=== PATIENT | female | born 2005 | race Caucasian/White ===

== ENCOUNTER 2023-04-30 13:50 | Emergency (ER) | payer SELFPAY ==
[2023-04-30 14:08] VITALS: BP 139/87; PULSE 86; RESP 18; TEMP 98.5; BMI 24.5
[2023-04-30 15:37] LABS: BASO % 0.6 % (0-2.0); EOS % 5.7 % (0-4.5); HEMATOCRIT 42.7 % (32.4-45.2); HEMOGLOBIN 14.2 GM/dL (10.7-15.3); LYMPH % 23.6 % (8-40); MCH 27.1 pg (25.7-33.7); MCHC 33.3 g/dl (32.0-36.0); MEAN CELL VOLUME 81.3 fl (80-96); MEAN PLT VOLUME 9.3 fl (7.5-11.1); MONO % 7.7 % (3.8-10.2); NEUT % 62.4 % (42.8-82.8); PLATELET COUNT 266 10^3/uL (134-434); RBC 5.25 M/mm3 (3.60-5.2); RDW 14.2 % (11.6-15.6); WHITE BLOOD COUNT 8.6 K/mm3 (4.0-10.0)
[2023-04-30 15:43] LABS: INR 1.1 (0.83-1.09); PROTHROMBIN TIME (PATIENT) 12.8 SEC (9.7-13.0)
[2023-04-30 15:46] LABS: POTASSIUM 4.2 mmol/L (3.5-5.1)
[2023-04-30 15:47] LABS: BLOOD UREA NITROGEN 7.1 mg/dL (7-18)
[2023-04-30 15:48] LABS: ALBUMIN 3.8 g/dl (3.4-5.0); CALCIUM 8.9 mg/dL (8.5-10.1)
[2023-04-30 15:51] LABS: CREATININE 0.5 mg/dL (0.55-1.3)
[2023-04-30 15:53] LABS: BILIRUBIN,TOTAL 0.3 mg/dL (0.2-1); TOT PROT 7.7 g/dl (6.4-8.2)
== END 2023-04-30 18:36 | disposition home or self-care (01) ==
LOC: JER 13:50
DX: O26.891 Other specified pregnancy related conditions, first trimester (principal); R10.9 Unspecified abdominal pain; Z3A.01 Less than 8 weeks gestation of pregnancy
CPT/HCPCS: 36415; 76817-TC; 80053; 84702; 84703; 85025; 85610; 86850; 86900; 86901; 99284-25

== ENCOUNTER 2023-05-03 19:49 | Emergency (ER) | payer SELFPAY ==
[2023-05-03 20:04] VITALS: TEMP 98.3; BMI 24.5
[2023-05-03 20:49] LABS: BASO % 0.8 % (0-2.0); EOS % 1.5 % (0-4.5); HEMATOCRIT 37.9 % (32.4-45.2); HEMOGLOBIN 12.4 GM/dL (10.7-15.3); LYMPH % 36.5 % (8-40); MCH 26.8 pg (25.7-33.7); MCHC 32.7 g/dl (32.0-36.0); MEAN CELL VOLUME 82.1 fl (80-96); MEAN PLT VOLUME 9.6 fl (7.5-11.1); MONO % 12.8 % (3.8-10.2); NEUT % 48.4 % (42.8-82.8); PLATELET COUNT 207 10^3/uL (134-434); RBC 4.62 M/mm3 (3.60-5.2); RDW 14.1 % (11.6-15.6); WHITE BLOOD COUNT 6.7 K/mm3 (4.0-10.0)
[2023-05-03 21:14] LABS: POTASSIUM 4.1 mmol/L (3.5-5.1)
[2023-05-03 21:17] LABS: BLOOD UREA NITROGEN 7.2 mg/dL (7-18); CALCIUM 8.5 mg/dL (8.5-10.1)
[2023-05-03 21:18] LABS: ALBUMIN 3.7 g/dl (3.4-5.0)
[2023-05-03 21:21] LABS: CREATININE 0.7 mg/dL (0.55-1.3)
[2023-05-03 21:22] LABS: BILIRUBIN,TOTAL 0.4 mg/dL (0.2-1); TOT PROT 7.2 g/dl (6.4-8.2)
[2023-05-03 21:35] LABS: HCG,QUALITATIVE URINE Positive
[2023-05-03 21:44] LABS: EPI CELLS 24 /uL (0-25.1); HYALINE CASTS 0 /uL (0-3.1); PH,URINE 7.5 (5.0-8.0); URINE APPEARANCE TURBID; URINE BACTERIA 653 /uL (0-1359); URINE BILIRUBIN NEGATIVE (NEGATIVE); URINE COLOR YELLOW; URINE GLUCOSE (UA) NEGATIVE (NEGATIVE); URINE KETONE NEGATIVE (NEGATIVE); URINE LEUK ESTERASE TRACE (NEGATIVE); URINE NITRITE NEGATIVE (NEGATIVE); URINE PROTEIN NEGATIVE (NEGATIVE); URINE RBC 74 /uL (0-23.9); URINE WBC 19 /uL (0-25.8)
[2023-05-03 22:27] VITALS: PULSE 98; RESP 17
[2023-05-03 22:50] VITALS: BP 129/78
== END 2023-05-03 22:51 | disposition home or self-care (01) ==
LOC: JER 19:49
DX: O03.9 Complete or unspecified spontaneous abortion without complication (principal)
CPT/HCPCS: 36415; 80053; 81003; 84702; 84703; 85025; 86850; 86900; 86901; 99283-25